=== PATIENT | female | born 1990 | race Two or more races ===

== ENCOUNTER 2021-11-19 09:38 | Outpatient (CLI) | payer OTHER | END 2021-11-19 09:39 | disposition home or self-care (01) | LOC: SONOGRAMA 09:38 | PROVIDERS: ATTEND Pathology Anatomic Pathology & Clinical Pathology | DX: E04.1 Nontoxic single thyroid nodule (principal) ==

== ENCOUNTER 2022-04-18 15:43 | Emergency (ER) | payer OTHER ==
[~2022-04-18] VITALS: Ht 165.1 cm; Wt 76.2 kg
[2022-04-18] MEDS ORDERED: TAPAZOLE5 MG PO (15:51)
[2022-04-18] MEDS ORDERED: PEPCID AC20 MG PO (15:52)
== END 2022-04-18 21:35 | disposition home or self-care (01) ==
LOC: ER 15:43
DX: K42.9 Umbilical hernia without obstruction or gangrene (principal); Z91.013 Allergy to seafood

== ENCOUNTER 2022-12-06 14:41 | Emergency (ER) | payer OTHER ==
[~2022-12-06] VITALS: Ht 165.1 cm; Wt 77.1 kg
[~2022-12-06 14:41] MED LIST: PEPCID AC20 MG PO; TAPAZOLE5 MG PO
== END 2022-12-06 18:08 | disposition home or self-care (01) ==
LOC: ER 14:41
DX: S99.822A Other specified injuries of left foot, initial encounter (principal); X58.XXXA Exposure to other specified factors, initial encounter; Y93.89 Activity, other specified; Y92.89 Other specified places as the place of occurrence of the external cause; Y99.8 Other external cause status; Z91.013 Allergy to seafood

== ENCOUNTER 2023-07-01 14:14 | Emergency (ER) | payer OTHER ==
[~2023-07-01] VITALS: Ht 165.1 cm; Wt 77.1 kg
[2023-07-01] MEDS ORDERED: TENORMIN25 MG PO (14:34)
[2023-07-01 16:51] LABS: HEMATOCRIT 38.2 % (36.0-45.00); HEMOGLOBIN 12.6 g/dL (12.0-15.00); MEAN CELL VOLUME 84.8 fL (80.00-100.00); MEAN CORPUSCULAR HEMOGLOBIN 28.1 pg (27.00-32.0); MEAN CORPUSCULAR HGB CONC 33.1 g/dl (32.0-36.0); PLATELET COUNT 177 K/uL (150-450)
== END 2023-07-01 17:20 | disposition home or self-care (01) ==
LOC: ER 14:15
PROVIDERS: General Practice
DX: J10.1 Influenza due to other identified influenza virus with other respiratory manifestations (principal); Z91.013 Allergy to seafood

== ENCOUNTER 2024-03-01 17:27 | Emergency (ER) | payer OTHER ==
[~2024-03-01] VITALS: Ht 165.1 cm; Wt 74.8 kg
[~2024-03-01 17:27] MED LIST changes: +TENORMIN25 MG PO
[2024-03-01] MEDS ORDERED: DICLOFENAC SODI75 MG PO (18:44)
[2024-03-01] MEDS ORDERED: TRIAMCINOLONE ACETONIDE 40 MG/ML VIAL ONE (18:44)
[2024-03-01] MEDS ORDERED: KETOROLAC TROMETHAMINE 60 MG VIAL IM ONE ×2 (18:45)
[2024-03-01] MEDS ORDERED: TRIAMCINOLONE ACETONIDE 40 MG/ML VIAL IM ONE (18:45)
== END 2024-03-01 19:17 | disposition home or self-care (01) ==
LOC: ER 17:28
DX: M77.8 Other enthesopathies, not elsewhere classified (principal); Z91.013 Allergy to seafood
CPT/HCPCS: 96372; 99282; J1885; J3301

== ENCOUNTER 2024-10-04 19:04 | Emergency (ER) | payer OTHER ==
[~2024-10-04] VITALS: Ht 165.1 cm; Wt 74.4 kg
[~2024-10-04 19:04] MED LIST changes: +DICLOFENAC SODI75 MG PO
[2024-10-04] MEDS ORDERED: FAMOTIDINE/PF 20 MG in 0.9 % SODIUM CHLORIDE 8 ML IV PUSH STA (20:42)
[2024-10-04] MEDS ORDERED: 0.9 % SODIUM CHLORIDE 1,000 ML IV SCH (20:45)
[2024-10-04] MEDS ORDERED: ACETAMINOPHEN 500 MG GEL..CAP PO ONE (20:45)
[2024-10-04] MEDS ORDERED: DIPHENOXYLATE HCL/ATROPINE 1 UDTAB TABLET PO ONE (20:45)
[2024-10-04] MEDS ORDERED: ONDANSETRON HCL 2 MG/ML VIAL IV ONE (20:45)
[2024-10-04] MEDS ORDERED: ONDANSETRON HCL 2 MG/ML VIAL ONE (21:02)
[2024-10-04] MEDS ORDERED: FAMOTIDINE/PF 20 MG/2 ML VIAL ONE (21:02)
[2024-10-04 21:40] LABS: HEMATOCRIT 40.4 % (36.0-45.00); HEMOGLOBIN 13.2 g/dL (12.0-15.00); MEAN CELL VOLUME 87.3 fL (80.00-100.00); MEAN CORPUSCULAR HEMOGLOBIN 28.5 pg (27.00-32.0); MEAN CORPUSCULAR HGB CONC 32.6 g/dl (32.0-36.0); PLATELET COUNT 155 K/uL (150-450); RED BLOOD COUNT 4.62 M/uL (4.00-6.00); RED CELL DISTRIBUTION WIDTH 14.8 % (11.5-14.5)
[2024-10-04 21:51] LABS: ALBUMIN 3.7 gm/dL (3.4-5.0); BILIRUBIN TOTAL 0.38 mg/dL (0.3-1.2); CALCIUM 8.6 mg/dL (8.5-10.1); CREATININE SERUM 0.95 mg/dL (0.55-1.02); GFR 66.94; GLOBULINA 4.6 G/DL (2.4-3.5); POTASSIUM 3.33 mEq/L (3.5-5.1); TOTAL PROTEIN 8.3 gm/dL (6.4-8.2)
[2024-10-04] MEDS ORDERED: INTESTINEX680 M1 PO (23:45)
[2024-10-04] MEDS ORDERED: PEPCID AC20 MG PO (23:45)
== END 2024-10-05 00:12 | disposition home or self-care (01) ==
LOC: ER 19:05
PROVIDERS: General Practice
DX: B34.9 Viral infection, unspecified (principal); R19.7 Diarrhea, unspecified; R10.9 Unspecified abdominal pain; Z20.822 Contact with and (suspected) exposure to COVID-19